=== PATIENT | male | born 1950 | race African-American/Black ===

== ENCOUNTER 2019-04-13 12:06 | Day surgery (SDC) | payer OTHER ==
--- OUTSIDE RECORDS SUMMARY | 2019-04-13 12:09 | XMS REPORT ---
:1950 Author Organization [facility] Address [address] [place] [address] Care Team Providers Name Role Phone UNKNOWN, REFFERING Primary Care Provider Unavailable MIKE CAROLINA Unavailable Unavailable Problems This patient has no known problems. Allergies, Adverse Reactions, Alerts This patient has no known allergies or adverse reactions. Medications This patient has no known medications. Encounters Start End Encounter Admission Attending Care Care Encounter Date/Time Date/Time Type Type Clinicians Facility Department ID 2017-06-08 2017-06-08 [id number] 17:32:00 17:32:00 MIKE Results Test Description Test Time Test Comments Text Results Atomic Results Result Comments Lipid Profile 2017-06-08 18:02:00 Test Item Value Reference Range Comments Cholesterol (test code=CHOL) 190 mg/dL 0-200 Triglycerides (test code=TRIG) 132 mg/dL 9-200 HDL (test code=HDL) 35 mg/dL 40-60 Chol/HDL (test code=CHOLPHDL) 5.4 Ratio 0.0-5.0 LDL, Calculated (test 129 mg/dL 0-130 (NOTE)RISK OF HEART DISEASEPublished code=LDLC) by [place] Heart AssociationAnalyte Optimal Boderline Increased RiskCHOL <200 200-239 >240TRIG <150 150-199 >200HDL Male: >60 <40HDL Female: >60 <50LDL <100 130-159 >160LDL NEAR OPTIMAL IS 100-129 VLDL (test code=VLDL) 26 mg/dL 5-40 LDL/HDL (test code=LDLPHDL) 4 POC Glucose, [id number] 12:58:00 Test Item Value Reference Range Comments POC Glucose (test 109 mg/dL 70-115 If you consider your patient code=POCGLUC) critically ill, the [employer] Accu-Chek InformII metershould not be used for Glucose determinations.Draw a venous Glucose and send to the Main Lab for Analysis.
[2019-04-13] MEDS ORDERED: NA CHLORIDE 0.9% 1,000 ML ONE ×2 (12:16→14:28)
[2019-04-13] MEDS ORDERED: propofoL 200 MG/20 ML VIAL IV ONE (13:37)
[2019-04-13] MEDS ORDERED: GLYCOPYRROLATE 0.2 MG/ML SYR ONE (13:37)
[2019-04-13] MEDS ORDERED: LIDOCAINE 1% MPF 30 ML VIAL ONE (13:37)
--- NOTE | 2019-04-13 15:03 | ENDO RPT ---
[address], [address] COLONOSCOPY PROCEDURE REPORT EXAM DATE: 04/13/2019 PATIENT NAME: Leo العلي MR #: [id number] BIRTHDATE: 1950 ATTENDING: Carl Flores Dr STATUS: outpatient [employer] HELPER MAINTENANCE: Gerardo Pham RN and Saima Phan RN INDICATIONS: The patient is a 68 yr old Male here for a colonoscopy due to hemoquant positive stools PROCEDURE PERFORMED: Colonoscopy with snare polypectomy and Colon w/ endoclip MEDICATIONS: Per Anesthesia. ESTIMATED BLOOD LOSS: None CONSENT: The patient understands the risks and benefits of the procedure and understands that these risks include, but are not limited to: sedation, allergic reaction, infection, perforation and/or bleeding. Alternative means of evaluation and treatment include, among others: physical exam, x-rays, and/or surgical intervention. The patient elects to proceed with this endoscopic procedure. DESCRIPTION OF PROCEDURE: During intra-op preparation period all mechanical medical equipment was checked for proper function. Hand hygiene and appropriate measures for infection prevention was taken. Procedure, possible complications, alternatives including, but not limited to possibility of bleeding, perforation, tear, infection, sepsis, need for surgery, need for blood transfusion, were explained to the patient. After the risks, benefits and alternatives of the procedure were thoroughly explained, Informed consent was verified, confirmed and timeout was successfully executed by the treatment team. The patient was placed in the left lateral position. A digital rectal exam was performed and revealed an enlarged prostate. After appropriate level of anesthesia, the scope was passed. The EC-[id number] ([id number]) endoscope was introduced through the anus and advanced to the cecum, which was identified by both the appendix and ileocecal valve. The quality of the prep was fair. The instrument was then slowly withdrawn as the colon was fully examined. Scope withdrawal time was 8 minutes. COLON FINDINGS: A smooth pedunculated polyp measuring 1 cm in size was found in the transverse colon. A polypectomy was performed using snare cautery. The wound at the site was closed by placing hemoclips. One (1) placement was made. One (1) placement was made. Mild diverticulosis was noted throughout the entire examined colon. No bleeding was noted from the diverticulosis. Small internal hemorrhoids were found. Retroflexed views revealed small hemorrhoids. The scope was then completely withdrawn from the patient and the procedure terminated. ADVERSE EVENTS: There were no complications. IMPRESSIONS: 1. 1 cm pedunculated polyp in the transverse colon; polypectomy was performed using snare cautery; the wound at the site was closed by placing hemoclips 2. Mild diverticulosis throughout the entire examined colon 3. Small internal hemorrhoids 4. Intubation to cecum RECOMMENDATIONS: 1. await biopsy results 2. avoid NSAIDS for 2 weeks 3. fiber rich diet RECALL: Return in 1 year(s) for Colonoscopy. Carl Flores Dr eSigned: Carl Flores Dr 04/13/2019 3:03 PM cc: Cesar Monique CPT CODES: ICD9 CODES: PATIENT NAME: Leo العلي MR#: [id number]
[2019-04-13 16:01] VITALS: BP 116/81; TEMP 97.5; O2SAT 93
== END 2019-04-13 15:55 | disposition home or self-care (01) ==
LOC: OR 12:06
PROVIDERS: ATTEND Internal Medicine Gastroenterology
PROC: 0DBL8ZX Excision of Transverse Colon, Via Natural or Artificial Opening Endoscopic, Diagnostic (ICD-10-PCS; principal; 2019-04-13 13:30)
DX: D12.3 Benign neoplasm of transverse colon (principal); K57.90 Diverticulosis of intestine, part unspecified, without perforation or abscess without bleeding; K64.8 Other hemorrhoids; E11.9 Type 2 diabetes mellitus without complications; I10 Essential (primary) hypertension; Z95.0 Presence of cardiac pacemaker; Z88.0 Allergy status to penicillin
CPT/HCPCS: 82947 ×2; 88305; 45385; J2704; J7030 ×2